=== PATIENT | female | born 1940 | race Caucasian/White ===

== ENCOUNTER 2017-05-29 13:18 | Emergency (ER) | payer MEDICARE, OTHER ==
[2017-05-29] MEDS ORDERED: IV NORMAL SALINE 1,000ML 1,000 ML ONE (14:10)
[2017-05-29] MEDS ORDERED: ONDANSETRON PF 4 MG/2 ML VIAL. ONE (14:10)
[2017-05-29 14:22] LABS: BASO % 0 % (0-3); EOS # 0.1 x10^3/uL (0.0-0.7); EOS % 1 % (0-3); HEMATOCRIT 43.5 % (36.0-47.0); HEMOGLOBIN 15.1 g/dL (12.0-15.5); LYMPH # 0.8 x10^3/uL (1.0-4.8); LYMPH % 8 % (24-48); MEAN CORPUSCULAR HEMOGLOBIN 31 pg (25-35); MEAN CORPUSCULAR HGB CONC 35 g/dL (31-37); MEAN CORPUSCULAR VOLUME 89 fL (79-100); MONO # 0.2 x10^3/uL (0.0-1.1); MONO % 2 % (0-9); NEUT % 89 % (31-73); PLATELET COUNT 217 x10^3/uL (140-400); RED BLOOD COUNT 4.91 x10^6/uL (3.50-5.40); WHITE BLOOD COUNT 10.1 x10^3/uL (4.0-11.0)
[2017-05-29 14:27] LABS: ALBUMIN 3.5 g/dL (3.4-5.0); ALBUMIN/GLOBULIN RATIO 0.8 (1.0-1.7); CALCIUM 8.6 mg/dL (8.5-10.1); CREATININE 1.1 mg/dL (0.6-1.0); GFR 48.3; POTASSIUM 4.1 mmol/L (3.5-5.1); TOTAL BILIRUBIN 0.7 mg/dL (0.2-1.0)
[2017-05-29] MEDS ORDERED: ONDANSETRON PF 4 MG/2 ML VIAL. IV ONE (14:45)
[2017-05-29] MEDS ORDERED: IV NORMAL SALINE 1,000ML 1,000 ML IV ONE (14:45)
[2017-05-29 14:51] LABS: BACTERIA,URINE 0 /HPF (0-FEW); BILIRUBIN,URINE NEG (NEG); CLARITY,URINE HAZY; COLOR,URINE YELLOW; GLUCOSE,URINE NEG (NEG); NITRITE,URINE NEG (NEG); SQUAMOUS EPITHELIAL CELL,UR MOD /LPF; UROBILINOGEN,URINE 0.2 mg/dL (0.2 mg/dL); WBC,URINE RARE /HPF (0-4)
[2017-05-29 16:00] VITALS: BP 137/76
--- NOTE | 2017-05-29 16:09 | RAD ---
CT abdomen/pelvis without contrast 05/29/2017 at 1536 hours Indication: Right lower quadrant abdominal pain Comparison: None available Technique: Multiple axial CT images of the abdomen and pelvis were obtained without intravenous contrast. Coronal and sagittal reformats are provided. Findings: There is subsegmental atelectasis at the left lung base. Heart size is within normal limits. Liver, spleen, bilateral adrenal glands, and pancreas are within normal limits. Gallbladder is surgically absent. The abdominal aorta is normal in course and caliber with moderate atherosclerotic calcification. There is moderate calcified plaque at the origin of the celiac axis and mild calcified plaque at the origin of the superior mesenteric artery. There is moderate calcified plaque at the origin of the right renal artery. There are no pathologically enlarged lymph nodes in abdomen or pelvis. There is no free fluid or free intraperitoneal air. A 1 mm calculus is identified in the superior pole the right kidney. A 1 mm calculus is identified in the inferior pole of the right kidney. There is no accelerated hydronephrosis. No calculi are identified in the left kidney, ureters or urinary bladder. Evaluation in the distal ureters is however limited by streak artifact from bilateral hip prosthesis. Urinary bladder is within normal limits given degree of distention. Evaluation of the bowel is limited by lack of oral contrast. No evidence for bowel obstruction. Appendix is surgically absent. The pericolic inflammatory changes are identified. 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 No suspicious osseous lesions are noted. Increased sclerosis of the left pubic symphysis may be degenerative or posttraumatic. Impression: 1. No acute abnormality is identified in the abdomen or pelvis. No evidence for bowel obstruction or inflammatory changes. 2. There are two 1-mm calculi in the right kidney. No hydronephrosis. No evidence for obstructive uropathy. PQRS Compliance Statement: One or more of the following individualized dose reduction techniques were utilized for this examination: 1. Automated exposure control 2. Adjustment of the mA and/or kV according to patient size 3. Use of iterative reconstruction technique
--- NOTE | 2017-05-29 16:12 | PHYS DOC ---
General Chief Complaint: NAUSEA/VOMITING/DIARRHEA Stated Complaint: ALTERED MENTAL Time Seen by MD: 13:39 Source: patient Exam Limitations: no limitations Problems: History of Present Illness Initial Comments Patient is a 76-year-old female brought to the ED by EMS with nausea and vomiting. Patient states she awoke this morning feeling nauseous, since then she's had several episodes of emesis and loose watery stools. No blood noted, no travel or bad food exposure no fever chills sweats or body aches and the patient denies abdominal discomfort or urine symptoms. Appetite is intact but the patient appears eating with her nausea. She denies chest pain or shortness of breath and states she had a negative stress test last week Timing/Duration: 4-6 hours Severity: moderate Modifying Factors: worse with eating Associated Symptoms: nausea/vomiting Allergies: Coded Allergies: Sulfa (Sulfonamide Antibiotics) (Verified Allergy, Unknown, 05/29/17) Past Medical History Medical History: other (COPD, diabetes, hypertension, hypothyroidism) Surgical History: appendectomy, cholecystectomy (hip replacement, knee replacement, hysterectomy) Social History Smoker: non-smoker Alcohol: none Drugs: none Review of Systems Constitutional: denies chills, denies diaphoresis, denies fever Respiratory: denies cough, denies shortness of breath Cardiovascular: denies chest pain, denies palpitations Gastrointestinal: see HPI Genitourinary: denies dysuria, denies frequency, denies hematuria Musculoskeletal: denies back pain, denies joint swelling, denies neck pain Psychiatric/Neurological: denies headache, denies numbness, denies paresthesia Physical Exam General Appearance: mild distress, obese Ear, Nose, Throat: hearing grossly normal, normal ENT inspection Neck: non-tender, supple Respiratory: normal breath sounds, no respiratory distress Cardiovascular: normal peripheral pulses, regular rate, rhythm Gastrointestinal: soft (mildly distended/tympanic, right and left lower quadrant tenderness to palpation with guarding no rebound no palpable mass bowel sounds are hyperactive) Back: no CVA tenderness, no vertebral tenderness Extremities: no calf tenderness, pelvis stable, other (4+ pitting lower extremity edema with chronic edematous skin changes no ulcerations, swelling is at baseline per patient) Neurologic/Psychiatric: vessel engineer II-XII nml as tested, no motor/sensory deficits, alert, oriented x 3 Skin: warm/dry Orders, Labs, Meds PATIENT: KRISHAN WILLIS: [id number] : 1940 LOCATION: ER AGE: 76 SEX: F EXAM STATUS: REG ER ORD. PHYSICIAN: TACO BARAJAS DO REASON: RLQ/LLQ tenderness, bloating, n/v PROCEDURE: CT ABDOMEN PELVIS WO CONTRAST CT abdomen/pelvis without contrast 05/29/2017 at 1536 hours Indication: Right lower quadrant abdominal pain Comparison: None available Technique: Multiple axial CT images of the abdomen and pelvis were obtained without intravenous contrast. Coronal and sagittal reformats are provided. Findings: There is subsegmental atelectasis at the left lung base. Heart size is within normal limits. Liver, spleen, bilateral adrenal glands, and pancreas are within normal limits. Gallbladder is surgically absent. The abdominal aorta is normal in course and caliber with moderate atherosclerotic calcification. There is moderate calcified plaque at the origin of the celiac axis and mild calcified plaque at the origin of the superior mesenteric artery. There is moderate calcified plaque at the origin of the right renal artery. There are no pathologically enlarged lymph nodes in abdomen or pelvis. There is no free fluid or free intraperitoneal air. A 1 mm calculus is identified in the superior pole the right kidney. A 1 mm calculus is identified in the inferior pole of the right kidney. There is no accelerated hydronephrosis. No calculi are identified in the left kidney, ureters or urinary bladder. Evaluation in the distal ureters is however limited by streak artifact from bilateral hip prosthesis. Urinary bladder is within normal limits given degree of distention. Evaluation of the bowel is limited by lack of oral contrast. No evidence for bowel obstruction. Appendix is surgically absent. The pericolic inflammatory changes are identified. 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 No suspicious osseous lesions are noted. Increased sclerosis of the left pubic symphysis may be degenerative or posttraumatic. Impression: 1. No acute abnormality is identified in the abdomen or pelvis. No evidence for bowel obstruction or inflammatory changes. 2. There are two 1-mm calculi in the right kidney. No hydronephrosis. No evidence for obstructive uropathy. PQRS Compliance Statement: One or more of the following individualized dose reduction techniques were utilized for this examination: 1. Automated exposure control 2. Adjustment of the mA and/or kV according to patient size 3. Use of iterative reconstruction technique DICTATED AND SIGNED BY: BHANU COYLE MD DATE: 05/29/17 [id number] CC: MILDRED [employer]ERS APRN; TACO BARAJAS DO ~ Labs and urine unremarkable. Patient's nausea resolved with Zofran and the patient is feeling much better with IV fluids. She denies any complaints and is tolerating by mouth fluids. I discussed the treatment plan as well as signs and symptoms to monitor and indications for return patient expressed agreement and understanding. Departure Time of Disposition: 16:13 Disposition: 01 HOME, SELF-CARE Diagnosis: gastroenteritis likely viral Condition: GOOD Patient Instructions: Viral Gastroenteritis, [id number] Additional Instructions: Clear liquids today, advance to bland diet tomorrow as tolerated. Aggressive hydration with Gatorade or water. Prescription: Zofran ODT take as directed for nausea and vomiting. Follow-up with your doctor in 3 days if not better. Return to ED with new or changing symptoms. TACO BARAJAS DO May 29, 2017 16:12
[2017-05-29] MEDS ORDERED: ONDA4TAB10 PO (16:15)
== END 2017-05-29 19:05 | disposition home or self-care (01) ==
LOC: ER 13:18
DX: K52.9 Noninfective gastroenteritis and colitis, unspecified (principal); J44.9 Chronic obstructive pulmonary disease, unspecified; I10 Essential (primary) hypertension; E11.9 Type 2 diabetes mellitus without complications; E03.9 Hypothyroidism, unspecified; Z90.710 Acquired absence of both cervix and uterus; Z90.49 Acquired absence of other specified parts of digestive tract; Z96.649 Presence of unspecified artificial hip joint; Z96.659 Presence of unspecified artificial knee joint
CPT/HCPCS: 36415; 51702; 74176; 80053; 81001; 83690; 85025; 96361; 96374; 99285; J2405; J7030

== ENCOUNTER → 2017-11-15 | Outpatient (CLI) | payer MEDICARE, OTHER ==
[~2017-11-15] MED LIST: ONDA4TAB10 PO
[2017-11-15 09:30] LABS: CALCIUM 9.4 mg/dL (8.5-10.1); CREATININE 1.1 mg/dL (0.6-1.0); GFR 48.3; POTASSIUM 4.3 mmol/L (3.5-5.1)
[2017-11-15 16:49] LABS: FREE T4 0.96 ng/dL (0.76-1.46); THYROID STIM HORMONE (TSH) 0.643 uIU/mL (0.358-3.740)
[2017-11-16 01:12] LABS: HEMOGLOBIN A1C 6.2 % (4.8-5.6)
== END | disposition home or self-care (01) ==
LOC: LAB 07:59
PROVIDERS: ATTEND Physician Assistant Medical
DX: E11.9 Type 2 diabetes mellitus without complications (principal); E03.9 Hypothyroidism, unspecified
CPT/HCPCS: 36415; 80048; 83036; 84439; 84443; 84481

== ENCOUNTER → 2017-11-15 | Outpatient (CLI) | payer MEDICARE, OTHER ==
[2017-11-15 09:29] LABS: ALBUMIN 3.4 g/dL (3.4-5.0); ALBUMIN/GLOBULIN RATIO 0.8 (1.0-1.7); CALCIUM 9.4 mg/dL (8.5-10.1); CREATININE 1.1 mg/dL (0.6-1.0); GFR 48.3; POTASSIUM 4.3 mmol/L (3.5-5.1); TOTAL BILIRUBIN 0.5 mg/dL (0.2-1.0); TOTAL PROTEIN 7.7 g/dL (6.4-8.2)
== END | disposition home or self-care (01) ==
LOC: LAB 08:02
PROVIDERS: ATTEND Nurse Practitioner
DX: E78.5 Hyperlipidemia, unspecified (principal)
CPT/HCPCS: 36415; 80053; 80061

== ENCOUNTER → 2018-06-13 | Outpatient (CLI) | payer MEDICARE, OTHER ==
[2018-06-13 08:50] LABS: ALBUMIN 3.4 g/dL (3.4-5.0); ALBUMIN/GLOBULIN RATIO 0.8 (1.0-1.7); CALCIUM 8.8 mg/dL (8.5-10.1); CREATININE 1.3 mg/dL (0.6-1.0); GFR 39.7; POTASSIUM 4.5 mmol/L (3.5-5.1); TOTAL BILIRUBIN 0.4 mg/dL (0.2-1.0); TOTAL PROTEIN 7.7 g/dL (6.4-8.2)
[2018-06-13 23:12] LABS: HEMOGLOBIN A1C 6.1 % (4.8-5.6)
== END | disposition home or self-care (01) ==
LOC: LAB 08:11
PROVIDERS: ATTEND Nurse Practitioner
DX: E78.5 Hyperlipidemia, unspecified (principal); E11.9 Type 2 diabetes mellitus without complications
CPT/HCPCS: 36415; 80053; 80061; 83036

== ENCOUNTER → 2021-05-20 | Outpatient (CLI) | payer MEDICARE, OTHER ==
--- NOTE | 2021-05-20 17:38 | RAD ---
EXAM: XR CHEST 2V 05/20/2021 12:21 PM CLINICAL INDICATION: Wheezing for 3 days COMPARISON: Chest radiograph 01/12/2013 TECHNIQUE: PA and lateral views of the chest FINDINGS: The heart is normal in size. Lungs are adequately expanded. Unchanged mild interstitial pr ominence. No focal consolidation, pleural effusion or pneumothorax. No acute osseous abnormality. The re is a left shoulder prosthesis. Right glenohumeral osteoarthrosis. IMPRESSION: No acute cardiopulmonary abnormality. Electronically signed by: Helen Sams MD (05/20/2021 5:36 PM) [id number]
== END ==
LOC: RAD 12:04
DX: R06.00 Dyspnea, unspecified (principal)
CPT/HCPCS: 71046

== ENCOUNTER → 2022-01-12 | Outpatient (CLI) | payer MEDICARE, OTHER ==
--- NOTE | 2022-01-12 13:10 | RAD ---
Two-view chest dated 01/12/2022 1:06 PM Comparison: 05/20/2021. CLINICAL INDICATION: Shortness of breath FINDINGS: PA and lateral views obtained. Heart and mediastinal contours are stable. Lungs are clear. No consoli dation or pleural effusion. No pneumothorax. Prominent reticular nodular markings, unchanged. IMPRESSION: No acute radiographic abnormality. Electronically signed by: Gerard Trotter MD (01/12/2022 1:07 PM) [facility]
== END ==
LOC: RAD 12:46
PROVIDERS: ATTEND Internal Medicine Critical Care Medicine
DX: R06.00 Dyspnea, unspecified (principal)
CPT/HCPCS: 71046